=== PATIENT | male | born 1985 | race Native Hawaiian/Other Pacific Islander ===

== ENCOUNTER 2021-10-18 12:58 | Emergency (ER) | payer MEDICARE ==
[2021-10-18] MEDS ORDERED: SODIUM CHLORIDE 0.9% 1000 ML 1,000 ML IV ONE (14:08)
--- NOTE | 2021-10-18 15:00 | Cat Scan Report ---
CT HEAD WITHOUT CONTRAST INDICATION / CLINICAL INFORMATION: seizure; altered mental status. TECHNIQUE: All CT scans at this location are performed using CT dose reduction for ALARA by means of automated exposure control. COMPARISON: None available. FINDINGS: CEREBRAL/CEREBELLAR PARENCHYMA: The cerebral and cerebellar hemispheres are normal for age. No CT julia dence for an acute or subacute territorial infarct. HEMORRHAGE: No acute intra-axial hemorrhage or extra-axial fluid collection. MASS: No mass or mass effect. VENTRICULAR SYSTEM: Normal in size and morphology for the patient's age. ORBITS: Normal as visualized. SOFT TISSUES/SKULL: No scalp hematoma or skull fracture. PARANASAL SINUSES/MASTOID AIR CELLS: Normal as visualized. IMPRESSION: 1. No acute intracranial process. Signer Name: Claude Coombs MD Signed: 10/18/2021 2:56 PM Workstation Name: [id number]
[2021-10-18 15:34] LABS: Basophils % (Auto) 0.4 % (0.0-1.8); Eosinophils # (Auto) 0.2 K/mm3 (0.0-0.4); Eosinophils % (Auto) 1.4 % (0.0-4.3); Hematocrit 49.7 % (35.5-45.6); Hemoglobin 16.7 gm/dl (11.8-15.2); Lymphocytes # (Auto) 1.7 K/mm3 (1.2-5.4); Lymphocytes % (Auto) 14.6 % (13.4-35.0); Mean Corpuscular HGB Conc 34 % (32-34); Mean Corpuscular Volume 90 fl (84-94); Monocytes # (Auto) 0.8 K/mm3 (0.0-0.8); Platelet Count 296 K/mm3 (140-440); Red Blood Count 5.55 M/mm3 (3.65-5.03); Red Cell Distribution Width 13.7 % (13.2-15.2)
[2021-10-18 15:50] LABS: Alanine Aminotransferase 37 units/L (7-56); Albumin 4.5 g/dL (3.9-5); Blood Urea Nitrogen 14 mg/dL (9-20); Calcium 9.8 mg/dL (8.4-10.2); Hemolysis Index 15
[2021-10-18] MEDS ORDERED: levETIRAcetam 1000 MG/NS 0.75% 1,000 MG/100 ML BAG IV ONE (15:53)
--- NOTE | 2021-10-18 16:11 | Emergency Department Report ---
HPI - General Chief Complaint: Seizure PUI?: No Time Seen by Provider: 10/18/21 14:06 - HPI HPI: 36-year-old obese male with a history of seizure disorder as a child (patient and his brother states he has not had seizures in 20 years), diabetes, brought in for evaluation of seizures. Patient states that several weeks ago he went to [facility] secondary to an abscess on his upper back. He states it was surgically incised and drained and he has been undergoing wound packing by visiting nurse, 3 times a day. He has an upcoming appointment with the surgeon at [facility] on October 30 but states he has been feeling well. He states that he was feeling well today when the nurse went to evaluate the wo und and she placed curette in the wound. He states he felt dizzy when she placed the curette in the wound and cannot recall what happened thereafter. Patient's brother states that the nurse informed him that the patient began having what she believed was to be a generalized tonic-clonic seizure. Patient had foaming at the mouth, and was confused afterwards. Patient states he is feeling well right now and denies any complaints. Denies any chest pain shortness of breath difficulty breathing palpitations fevers chills body aches vision changes difficulty talking walking or word finding. He denies any tobacco alcohol or illicit drug usage. Pain currently 0-10 ED Past Medical Hx - Past Medical History Previous Medical History?: Yes Hx Diabetes: Yes Additional medical history: Seizure disorder in childhood - Surgical History Past Surgical History?: Yes Additional Surgical History: Incision and drainage of upper back abscess - Family History Family history: hypertension - Social History Smoking Status: Never Smoker Substance Use Type: None - Medications Home Medications: Home Medications Medication Instructions Recorded Confirmed Last Taken Type levETIRAcetam [Keppra TAB] 500 mg PO BID 30 Days #60 tablet 10/18/21 Unknown Rx ED Review of Systems ROS: Stated complaint: SEIZURE Other details as noted in HPI Comment: All other systems reviewed and negative Physical Exam - Physical Exam Vital Signs: Vital Signs 10/18/21 10/18/21 10/18/21 13:04 15:25 15:36 Temperature 98 F 98.3 F Pulse Rate 72 68 Respiratory 14 20 Rate Blood Pressure 128/82 113/72 [Left] O2 Sat by Pulse 100 100 100 Oximetry General: Gen: pt is well appearing, no acute distress HEENT: Normocephalic atraumatic pupils equally round and reactive to light extraocular muscles intact sclera anicteric Neck: Full range of motion, no midline spinal tenderness palpation, no JVD, no carotid bruits, no nuchal rigidity CVS: S1-S2 regular rate and rhythm with no gallops rubs or murmurs, chest wall nontender Pulmonary: Clear to auscultation bilaterally, no wheezes rales or rhonchi BACK: FROM, no midline spinal ttp; no palpable deformities or step-offs, patient noted to have 3 cm x 4 cm irregularly shaped wound to his upper back, wound is packed with packing material, there is no surrounding erythema drainage or tenderness palpation, site appears extremely well and has no secondary signs of infection or wound dehiscence Abdomen: Soft nondistended nontender no guarding or rebound tenderness, no palpable deformities or step-offs, normal active bowel sounds, no hepatosplenomegaly, no pulsatile masses : Deferred Extremities: No cyanosis no clubbing no edema, intact distal peripheral pulses, Integumentary: Skin normal, no petechia no purpura no abscess no lacerations no evidence of trauma no evidence of infection Neuro: Patient is awake alert and oriented to person place time situation, mentating well, cranial nerves II through XII intact, no focal neurodeficits, sensation grossly intact, GCS 15 Psych: Calm cooperative, mood affect normal, no seizure-like activity, no*6 no tremors ED Course Vital Signs 10/18/21 10/18/21 10/18/21 13:04 15:25 15:36 Temperature 98 F 98.3 F Pulse Rate 72 68 Respiratory 14 20 Rate Blood Pressure 128/82 113/72 [Left] O2 Sat by Pulse 100 100 100 Oximetry - Reevaluation(s) Reevaluation #1: 10/18/21 16:10 Patient reassessed. He is comfortable and well-appearing, mentation is normal, no altered sensorium seizure or seizure-like activity witnessed Reevaluation #2: 10/18/21 18:12 Patient reassessed. He is comfortable and well-appearing, he is moving all extremities. His mentation is normal. He has no seizure-like activity focal motor neurodeficits postictal state or any other objective findings. Plan will be to discharge home ED Medical Decision Making - Lab Data Result diagrams: 10/18/21 14:57 10/18/21 14:57 - Radiology Data Radiology results: report reviewed - Medical Decision Making 36-year-old male with a prior history of seizure disorder, currently with history of active type 2 diabetes, presents for evaluation status post seizure. Vital signs stable. Patient is not postictal here. He is undergoing multiple reassessments by me at his bedside. He had no manifestation of seizure-like activity or altered sensorium. CT head per reading radiologist demonstrates no acute intracranial process. Patient underwent frequent neurological checks by me throughout his extended emergency department stay and he had no evidence of recurrent seizure, altered sensorium, or any other acute life-threatening process while here. Patient was loaded with Keppra 1 g IV assess as a precaution. He will be discharged to home on Keppra 500 mg by mouth twice daily. I strongly advised the patient to abstain from driving and operating any other heavy machinery, as well as swimming, until he is cleared by either his primary care doctor and/or the neurologist to whom he will be referred. Prior to discharge the patient was given strict verbal and written return precautions. Patient verbalized understanding agreement plan of care peer Critical Care Time: No Critical care attestation.: If time is entered above; I have spent that time in minutes in the direct care of this critically ill patient, excluding procedure time. ED Disposition Clinical Impression: Seizure Disposition: 01 HOME / SELF CARE / HOMELESS Is pt being admited?: No Does the pt Need Aspirin: No Condition: Stable Instructions: Seizure, Adult, [id number] Additional Instructions: The cause of your seizure is unclear. Your labs and CAT scan of your head are normal. You will be started on Keppra 500 mg by mouth twice a day. Please call your primary care doctor in 1 business day to schedule immediate follow-up appoi ntment for reassessment. Your primary care doctor will need to reevaluate you and possibly refer you to be seen by a neurologist to determine if you still have an underlying seizure disorder. It is strongly advised that that you do not drive any cars or any other heavy machinery, and that you do not swim, until you are cleared by either your primary care doctor or a neurologist. This is very important. Observe your symptoms very carefully. Return to the nearest emergency department as soon as possible if you develop persistent seizures, vomiting, lightheadedness or dizziness, chest pain, weakness, or if any other new worrisome symptoms develop Prescriptions: levETIRAcetam [Keppra TAB] 500 mg PO BID 30 Days #60 tablet
[2021-10-18 16:27] LABS: BUN/Creatinine Ratio 23
[2021-10-18 16:56] LABS: Amphetamine Screen,Urine Negative; Benzodiazepines Screen,Urine Negative; Cannabinoid Screen,Urine Negative; Cocaine Screen,Urine Negative; Methadone Screen,Urine Negative; Opiate Screen,Urine Negative
[2021-10-18 18:51] VITALS: BP 120/86
== END 2021-10-18 18:49 | disposition home or self-care (01) ==
LOC: ED 12:58
DX: G40.909 Epilepsy, unspecified, not intractable, without status epilepticus (principal); E11.9 Type 2 diabetes mellitus without complications
CPT/HCPCS: 36415; 70450; 80053; 80307; 85025; 96361; 96374; 99284; J1953; J7030; 80320; G0480